=== PATIENT | male | born 1960 | race Caucasian/White ===

== ENCOUNTER 2020-03-09 16:50 | Emergency (ER) | payer BC, SELFPAY ==
[~2020-03-09] VITALS: Ht 170.2 cm; Wt 89.4 kg
[2020-03-09 16:55] VITALS: BP_SYST 154
--- NOTE | 2020-03-09 17:00 | NUR ---
Patient triaged and placed in ER tent. VSS and patient appears in no acute distress at this time. Awaiting available bed, and MD notified of need for MSE.
--- NOTE | 2020-03-09 17:01 | NUR ---
Patient reports that he is COVID-19 positive and wants a chest x-ray. He has no other complaints.
--- NOTE | 2020-03-09 18:01 | NUR ---
Patient given written and verbal discharge instructions and verbalizes understanding. ER MD discussed with patient the results and treatment provided. Patient in stable condition. ID arm band removed. Patient educated on pain management and to follow up with PMD. Pain Scale 0/10. Opportunity for questions provided and answered. Medication side effect fact sheet provided.
[2020-03-09 18:12] VITALS: BP_SYST 154
== END 2020-03-09 18:12 | disposition home or self-care (01) ==
LOC: SED 16:50
DX: U07.1 COVID-19 (principal); J45.909 Unspecified asthma, uncomplicated; I48.91 Unspecified atrial fibrillation
CPT/HCPCS: 71045; 93005; 99283